=== PATIENT | female | born 1985 | race Two or more races ===

== ENCOUNTER 2024-08-27 08:03 | Emergency (ER) | payer OTHER ==
[~2024-08-27] VITALS: Ht 149.9 cm; Wt 67.1 kg
[2024-08-27 08:14] VITALS: BP 134/80; TEMP 98.1; O2SAT 98
[2024-08-27] MEDS: AZITHROMYCIN 250 MG TABLET PO ONE (08:36)
== END 2024-08-27 08:37 | disposition home or self-care (01) ==
LOC: ER 08:10
DX: Z20.811 Contact with and (suspected) exposure to meningococcus (principal)

== ENCOUNTER 2024-10-26 21:27 | Emergency (ER) | payer BC, OTHER ==
[~2024-10-26] VITALS: Ht 149.9 cm; Wt 68.0 kg
[2024-10-26] MEDS ORDERED: MECLIZINE HCL 25 MG TABLET ONE ×2 (21:52→23:04)
[2024-10-26] MEDS: MECLIZINE HCL 25 MG TABLET PO ONE ×2 (22:05→23:07)
[2024-10-26] MEDS: IV NS 0.9% 1,000 ML BAG IV ONE (22:05)
[2024-10-26 22:12] LABS: BASOPHILS # (AUTO) 0.1 K/uL (0.0-0.2); BASOPHILS % (AUTO) 0.9 % (0.0-2.0); EOSINOPHILS # (AUTO) 0.2 K/uL (0.0-0.7); EOSINOPHILS % (AUTO) 2.9 % (0.0-6.0); HEMATOCRIT 40 % (33-45); LYMPHOCYTES % (AUTO) 30.5 % (20.0-44.0); MEAN CORPUSCULAR HEMOGLOBIN 31 PG (26.0-33.0); MEAN CORPUSCULAR HGB CONC 35 g/dl (31.0-36.0); MEAN CORPUSCULAR VOLUME 90 fL (82-100); MONOCYTES # (AUTO) 0.5 K/uL (0.1-1.30); MONOCYTES % (AUTO) 7.5 % (2.0-12.0); NEUTROPHILS # (AUTO) 3.9 K/uL (1.8-8.9); NEUTROPHILS % (AUTO) 58.2 % (43.0-81.0); PLATELET COUNT (AUTO) 245 K/uL (150-450); RED BLOOD CELL COUNT(AUTO) 4.49 MIL/uL (4.0-5.2); RED CELL DISTRIBUTION WIDTH 12.7 % (11.5-15.0); WHITE BLOOD COUNT (AUTO) 6.7 K/uL (4.3-11.0)
[2024-10-26 22:24] LABS: CALCIUM, SERUM 9.3 mg/dL (8.5-10.1); CREATININE 0.8 mg/dL (0.6-1.3); POTASSIUM 3.7 mmol/L (3.5-5.1)
[2024-10-26 22:31] LABS: ALBUMIN 4.2 g/dL (3.4-5.0); BILIRUBIN,TOTAL 0.3 mg/dL (0.2-1.0); TOTAL PROTEIN, SERUM 8.1 g/dL (6.4-8.2)
[2024-10-26] MEDS ORDERED: MECL-159 PO (23:25)
[2024-10-26 23:47] VITALS: BP 144/107; TEMP 98.1; O2SAT 99
== END 2024-10-26 23:47 | disposition home or self-care (01) ==
LOC: ER 21:35
DX: R42 Dizziness and giddiness (principal); R03.0 Elevated blood-pressure reading, without diagnosis of hypertension
CPT/HCPCS: 99284; 96360; 70450; 93005; 85025; 36415; 80053; J8597 ×2; J7030

== ENCOUNTER 2025-04-27 02:41 | Emergency (ER) | payer BC, OTHER ==
[~2025-04-27] VITALS: Ht 147.3 cm; Wt 70.8 kg
[~2025-04-27 02:41] MED LIST: MECL-159 PO
[2025-04-27 02:48] VITALS: BP 132/78; TEMP 98; O2SAT 98
== END 2025-04-27 03:42 | disposition home or self-care (01) ==
LOC: ER 02:47
DX: R05.9 Cough, unspecified (principal)
CPT/HCPCS: 71045-TC